=== PATIENT | female | born 1965 | race American Indian/Alaskan Native ===

== ENCOUNTER 2018-10-12 20:26 | Emergency (ER) | payer OTHER ==
--- NOTE | 2018-10-12 20:34 | Emergency Department Report ---
Blank Doc - Documentation Documentation: This is a 53-demar-old female that presents with abd pain with n/v. Also stated has bilateral leg cramping. This initial assessment/diagnostic orders/clinical plan/treatment(s) is/are subject to change based on patient's health status, clinical progression and re- assessment by fellow clinical providers in the ED. Further treatment and workup at subsequent clinical providers discretion. Patient/guardians urged not to elope from the ED as their condition may be serious if not clinically assessed and managed. Initial orders include: 1- Patient sent to [facility] for further evaluation and treatment 2- labs
[2018-10-12 20:51] LABS: Basophils % (Auto) 0.4 % (0.0-1.8); Eosinophils % (Auto) 0.2 % (0.0-4.3); Hematocrit 40.9 % (30.3-42.9); Hemoglobin 13.9 gm/dl (10.1-14.3); Lymphocytes # (Auto) 0.8 K/mm3 (1.2-5.4); Lymphocytes % (Auto) 10.1 % (13.4-35.0); Mean Corpuscular HGB Conc 34 % (30-34); Mean Corpuscular Volume 94 fl (79-97); Monocytes # (Auto) 0.5 K/mm3 (0.0-0.8); Monocytes % (Auto) 6.3 % (0.0-7.3); Platelet Count 170 K/mm3 (140-440); Red Blood Count 4.36 M/mm3 (3.65-5.03); Red Cell Distribution Width 13.2 % (13.2-15.2)
[2018-10-12 21:13] LABS: Alanine Aminotransferase 11 units/L (7-56); BUN/Creatinine Ratio 17; Blood Urea Nitrogen 10 mg/dL (7-17); Calcium 8.9 mg/dL (8.4-10.2); Hemolysis Index 0
[2018-10-12 21:36] LABS: Bilirubin,Urine NEG (Negative); Blood,Urine LG (Negative); Color,Urine Yellow (Yellow); Hyaline Casts,Urine 1 /LPF; Mucus,Urine FEW /HPF
[2018-10-12 21:37] VITALS: BP 144/65
[2018-10-13] MEDS ORDERED: TORADOL ONE (01:22)
[2018-10-13] MEDS ORDERED: ZOFRAN ONE (01:23)
[2018-10-13] MEDS ORDERED: NACL 0.9% 1000 ML 1,000 ML ONE (01:23)
[2018-10-13] MEDS ORDERED: NACL 0.9% 1000 ML 1,000 ML IV ONE (01:28)
[2018-10-13] MEDS ORDERED: TORADOL IV ONE (01:28)
[2018-10-13] MEDS ORDERED: ZOFRAN IV ONE (01:28)
--- NOTE | 2018-10-13 01:56 | Cat Scan Report ---
PROCEDURE: CT ABDOMEN PELVIS WO CON TECHNIQUE: Routine axial imaging was obtained of the abdomen and pelvis without oral or IV contrast. Sagittal and coronal reconstructions were reviewed. HISTORY: abd pain COMPARISONS: None FINDINGS: The lung bases are negative for infiltrates or effusions. The liver, gallbladder, biliary tree and pancreas are within normal limits. The spleen and adrenal gl ands appear normal. The kidneys show no evidence of stones or hydronephrosis. The bowel loops are nor mal in caliber and course. The appendix is not enlarged. There is no evidence of free fluid or adenop athy. In the pelvis the uterus is diffusely enlarged having a lobulated contour and coarse calcifications c ompatible with multiple fibroids. Centrally in the uterus is a low-attenuation area measuring 7 cm x 5.8 cm x 6.1 cm. Whether this is related to necrosis of a fibroid or abnormally thickened endometrium with fluid in the endometrial cavity is uncertain. The bladder appears normal. Free fluid is not see n. The skeletal structures reveal mild arthritic changes in the lower lumbar spine. IMPRESSION: Diffusely enlarged uterus with coarse calcifications at lobulated contour compatible with multiple fi broids. Within the uterus is a central low-attenuation area measuring 7 x 5.8 x 6.1 cm. Whether this is relat ed to necrosis of a fibroid or abnormally thickened endometrium/fluid in the abdomen cavity is uncert ain. Pelvic sonography would be helpful for further evaluation.. This document is electronically signed by Ruddy Vinson MD., October 13 2018 01:54:04 AM ET
--- NOTE | 2018-10-13 03:03 | Emergency Department Report ---
ED Abdominal Pain HPI - General Chief Complaint: Abdominal Pain Stated Complaint: CRAMPS Time Seen by Provider: 10/12/18 20:33 Source: patient Mode of arrival: Wheelchair Limitations: No Limitations - History of Present Illness Initial Comments: Patient is a 53-year-old -[place] female with a history of chronic fibroids scheduled for total hysterectomy in 2 weeks who presents for abdominal pain today 10/05 there is no nausea vomiting no fever chills patient is tolerating by mouth intake because of pain medication patient is followed by [facility] MD Complaint: abdominal pain Onset/Timin -: month(s) Location: LLQ, RLQ Radiation: LLQ, RLQ Migration to: suprapubic Severity: moderate Severity scale (0 -10): 4 Quality: cramping Consistency: intermittent Improves With: eating, bowel movement Worsens With: eating Associated Symptoms: nausea, diarrhea, chills, dysuria. denies: constipation, melena, syncope Treatments Prior to Arrival: NSAIDs - Related Data LMP (females 10-50): other (5 yr s=ago) Previous Rx's Medication Instructions Recorded Last Taken Type traMADol [Ultram] 50 mg PO Q6HR PRN #12 tablet 10/13/18 Unknown Rx Allergies Allergy/AdvReac Type Severity Reaction Status Date / Time No Known Allergies Allergy Verified 10/12/18 20:30 ED Review of Systems ROS: Stated complaint: CRAMPS Other details as noted in HPI Constitutional: denies: chills, fever Eyes: denies: eye pain, eye discharge, vision change ENT: denies: ear pain, throat pain Respiratory: denies: cough, shortness of breath, wheezing Cardiovascular: denies: chest pain, palpitations Endocrine: no symptoms reported Gastrointestinal: denies: abdominal pain, nausea, diarrhea Genitourinary: denies: urgency, dysuria, discharge Musculoskeletal: denies: back pain, joint swelling, arthralgia Skin: denies: rash, lesions Neurological: denies: headache, weakness, paresthesias Psychiatric: denies: anxiety, depression Hematological/Lymphatic: denies: easy bleeding, easy bruising ED Past Medical Hx - Past Medical History Previous Medical History?: Yes Hx Hypertension: Yes - Surgical History Past Surgical History?: Yes Additional Surgical History: fibroid removed, endometrial ablation - Social History Smoking Status: Never Smoker Substance Use Type: Alcohol - Medications Home Medications: Home Medications Medication Instructions Recorded Confirmed Last Taken Type traMADol [Ultram] 50 mg PO Q6HR PRN #12 tablet 10/13/18 Unknown Rx ED Physical Exam - General Limitations: No Limitations General appearance: alert, in no apparent distress - Head Head exam: Present: atraumatic, normocephalic - Eye Eye exam: Present: normal appearance, PERRL, EOMI Pupils: Present: normal accommodation - ENT ENT exam: Present: normal exam, normal orophraynx, mucous membranes moist, TM's normal bilaterally, normal external ear exam - Neck Neck exam: Present: normal inspection, tenderness, meningismus, full ROM. Absent: lymphadenopathy, thyromegaly - Respiratory Respiratory exam: Present: normal lung sounds bilaterally, wheezes, rhonchi, st ridor. Absent: respiratory distress - Cardiovascular Cardiovascular Exam: Present: regular rate, normal rhythm. Absent: systolic murmur, diastolic murmur, rubs, gallop - GI/Abdominal GI/Abdominal exam: Present: soft, normal bowel sounds - Rectal Rectal exam: Present: deferred - External exam: Present: normal external exam - Extremities Exam Extremities exam: Present: normal inspection, full ROM, normal capillary refill, calf tenderness. Absent: tenderness, pedal edema, joint swelling - Back Exam Back exam: Present: normal inspection, full ROM, rash noted. Absent: tenderness, CVA tenderness (R), CVA tenderness (L), muscle spasm, paraspinal tenderness, vertebral tenderness - Neurological Exam Neurological exam: Present: alert, oriented X3, CN II-XII intact, normal gait, motor sensory deficit - Psychiatric Psychiatric exam: Present: normal affect, normal mood, anxious, suicidal ideation - Skin Skin exam: Present: warm, dry, intact, normal color. Absent: rash ED Course Vital Signs 10/12/18 10/12/18 10/12/18 20:32 20:33 21:36 Temperature 98.7 F 98 F Pulse Rate 74 75 63 Respiratory 18 18 15 Rate Blood Pressure 178/97 178/97 Blood Pressure 144/65 [Right] O2 Sat by Pulse 99 99 98 Oximetry ED Medical Decision Making - Lab Data Result diagrams: 10/12/18 20:39 10/12/18 20:39 Labs 10/12/18 10/12/18 10/12/18 20:39 20:39 20:57 WBC 8.1 RBC 4.36 Hgb 13.9 Hct 40.9 MCV 94 MCH 32 MCHC 34 RDW 13.2 Plt Count 170 Lymph % (Auto) 10.1 L Turner % (Auto) 6.3 Eos % (Auto) 0.2 Baso % (Auto) 0.4 Lymph # 0.8 L Turner # 0.5 Eos # 0.0 Baso # 0.0 Seg Neutrophils % 83.0 H Seg Neutrophils # 6.8 Sodium 137 Potassium 3.2 L Chloride 100.2 Carbon Dioxide 24 Anion Gap 16 BUN 10 Creatinine 0.6 L Estimated GFR > 60 BUN/Creatinine Ratio 17 Glucose 107 H Calcium 8.9 Total Bilirubin 0.50 AST 16 ALT 11 Alkaline Phosphatase 64 Total Protein 7.6 Albumin 4.0 Albumin/Globulin Ratio 1.1 Lipase 25 Urine Color Yellow Urine Turbidity Clear Urine pH 5.0 Ur Specific [place] 1.019 Urine Protein 30 mg/dl Urine Glucose (UA) Neg Urine Ketones Tr Urine Blood Lg Urine Nitrite Neg Urine Bilirubin Neg Urine Urobilinogen 2.0 Ur Leukocyte Esterase Neg Urine WBC (Auto) 1.0 Urine RBC (Auto) 91.0 U Epithel Cells (Auto) 1.0 Hyaline Casts 1 Urine Mucus Few Urine Yeast (Budding) Few - Radiology Data Radiology results: report reviewed, image reviewed PROCEDURE: CT ABDOMEN PELVIS WO CON TECHNIQUE: Routine axial imaging was obtained of the abdomen and pelvis without oral or IV contrast. Sagittal and coronal reconstructions were reviewed. HISTORY: abd pain COMPARISONS: None FINDINGS: The lung bases are negative for infiltrates or effusions. The liver, gallbladder, biliary tree and pancreas are within normal limits. The spleen and adrenal glands appear normal. The kidneys show no evidence of stones or hydronephrosis. The bowel loops are normal in caliber and course. The appendix is not enlarged. There is no evidence of free fluid or adenopathy. In the pelvis the uterus is diffusely enlarged having a lobulated contour and coarse calcifications compatible with multiple fibroids. Centrally in the uterus is a low-attenuation area measuring 7 cm x 5.8 cm x 6.1 cm. Whether this is related to necrosis of a fibroid or abnormally thickened endometrium with fluid in the endometrial cavity is uncertain. The bladder appears normal. Free fluid is not seen. The skeletal structures reveal mild arthritic changes in the lower lumbar spine. IMPRESSION: Diffusely enlarged uterus with coarse calcifications at lobulated contour july tible with multiple fibroids. Within the uterus is a central low-attenuation area measuring 7 x 5.8 x 6.1 cm. Whether this is related to necrosis of a fibroid or abnormally thickened endometrium/fluid in the abdomen cavity is uncertain. Pelvic sonography would be helpful for further evaluation.. This document is electronically signed by Ruddy Vinson MD., October 13 2018 01:54:04 AM ET Transcribed By: RB Dictated By: RUDDY VINSON MD Electronically Authenticated By: RUDDY VINSON MD Signed Date/Time: 10/13/18155 DD/ 2 TD/TT: 10/13/18142 - Medical Decision Making Ultrasound confirms ovarian cyst patient is scheduled for total abdominal hysterectomy in 2 weeks there are no new findings plan Patient home with prescription for Zofran and naproxen when necessary for pain Pepcid by mouth twice a day, follow up tin during ED should symptoms worsen . pt verbalzieda agreement and understanding of discharge plan Critical care attestation.: If time is entered above; I have spent that time in minutes in the direct care of this critically ill patient, excluding procedure time. ED Disposition Clinical Impression: Abdominal pain Qualifiers: Abdominal location: generalized Qualified Code(s): R10.84 - Generalized abdominal pain Fibroid, uterine Qualifiers: Uterine leiomyoma location: unspecified location Qualified Code(s): D25.9 - Lei omyoma of uterus, unspecified Disposition: DC-01 TO HOME OR SELFCARE Is pt being admited?: No Does the pt Need Aspirin: No Condition: Good Instructions: Abdominal Pain (ED), Uterine Fibroids (ED) Prescriptions: traMADol [Ultram] 50 mg PO Q6HR PRN #12 tablet PRN Reason: Pain Referrals: PRIMARY CAREMD [Primary Care Provider] - 3-5 Days JANETTE MCINTYRE MD [Staff Physician] - 3-5 Days Forms: Work/School Release Form(ED) Time of Disposition: 03:29
== END 2018-10-13 03:43 | disposition home or self-care (01) ==
LOC: ED 20:26
DX: D25.9 Leiomyoma of uterus, unspecified (principal); R10.84 Generalized abdominal pain; I10 Essential (primary) hypertension
CPT/HCPCS: 36415; 74176; 80053; 81001; 83690; 85025; 96361; 96374; 96375; 99284; J1885; J2405; J7030